=== PATIENT | male | born 1990 | race African-American/Black ===

== ENCOUNTER → 2020-08-06 | Emergency (ER) | payer OTHER ==
[~2020-08-06] VITALS: Ht 193 cm; Wt 121.6 kg
[~2020-08-06] MED LIST: CEFTRIAXONE 1 G VIAL IM ONE; CEFTRIAXONE 1 G VIAL ONE; CT SWABBABLE VALVE TRANS SET 1 EA INFUS.SET MC ONE; DOXY-326 PO; DOXYCYCLINE HYCLATE (100 MG) 100 MG TABLET ONE; DOXYCYCLINE HYCLATE (100 MG) 100 MG TABLET PO ONE; IBUP-1957 PO; IOHEXOL-300 100 ML VIAL IV ONE; IV NS 0.9% 250 ML IV ONE; LIDOCAINE /MPF 1% VIAL 5 ML VIAL ONE; METR500T PO; TRAM50TA2 PO
--- NOTE | 2020-08-06 17:50 | NUR ---
PT BIB SELF C/O RECTAL PAIN X 2 WEEKS, NOTICE "BLOOD CLOTS" IN STOOL TODAY. PT IS AAOX4, NOT IN RESPIRATORY DISTRESS, V/S STABLE, KEPT RESTED AND COMFORTABLE. WILL CONTINUE TO MONITOR.
--- NOTE | 2020-08-06 18:15 | NUR ---
TIAN AGUILAR AT BEDSIDE FOR EVAL.
--- NOTE | 2020-08-06 18:40 | NUR ---
IV LINE ESTABLISHED BLOOD DRAWN AND SENT TO LAB.
[2020-08-06 18:44] LABS: EOSINOPHILS % (AUTO) 1.2 % (0.0-6.0); HEMATOCRIT 45 % (39-51); HEMOGLOBIN 15.5 g/dL (13.5-17.5); LYMPHOCYTES % (AUTO) 24.6 % (20.0-44.0); MEAN CORPUSCULAR HGB CONC 34 g/dl (31.0-36.0); MEAN CORPUSCULAR VOLUME 83 fL (80-96); MONOCYTES % (AUTO) 7.8 % (2.0-12.0); NEUTROPHILS % (AUTO) 65.7 % (43.0-81.0); PLATELET COUNT (AUTO) 309 /CMM (150-450); RED BLOOD CELL COUNT(AUTO) 5.47 MIL/uL (4.5-6.0)
[2020-08-06 18:45] LABS: BASOPHILS # (AUTO) 0.1 /CMM (0.0-0.2); BASOPHILS % (AUTO) 0.7 % (0.0-2.0); MONOCYTES # (AUTO) 0.6 /CMM (0.1-1.30); NEUTROPHILS # (AUTO) 5.3 /CMM (1.8-8.9)
[2020-08-06 19:07] LABS: ALBUMIN 4.2 g/dL (3.4-5.0); BILIRUBIN,DIRECT 0.2 mg/dL (0.0-0.2); BILIRUBIN,TOTAL 0.9 mg/dL (0.2-1.0); CALCIUM, SERUM 8.8 mg/dL (8.5-10.1); CREATININE 1.2 mg/dL (0.6-1.3); POTASSIUM 3.6 mmol/L (3.5-5.1); TOTAL PROTEIN, SERUM 8.2 g/dL (6.4-8.2)
--- NOTE | 2020-08-06 19:42 | NUR ---
returned from ct
--- NOTE | 2020-08-06 20:08 | NUR ---
INFECTIOUS DISEASE MEDICAL CLAIMS ANALYST PAGED PER MD REQUEST (DR. JEAN BAPTISTE)
--- NOTE | 2020-08-06 20:22 | NUR ---
Patient discharged to home in stable condition. Written and verbal after care instructions given. Patient verbalizes understanding of instruction. IV removed. Catheter intact and site benign. Pressure and 4x4 applied to site. No bleeding noted. Pt ambulatory with a steady gait
[2020-08-06 20:33] VITALS: BP 110/69
== END | disposition home or self-care (01) ==
LOC: ER 17:50
DX: K62.89 Other specified diseases of anus and rectum (principal); I10 Essential (primary) hypertension; Z88.8 Allergy status to other drugs, medicaments and biological substances
CPT/HCPCS: 74177; 80048; 80076; 85025; 85730; 96372; 99285; J0696; J3490; J7050; Q9967

== ENCOUNTER 2020-08-30 02:40 | Emergency (ER) | payer OTHER ==
[~2020-08-30 02:40] MED LIST changes: -CEFTRIAXONE 1 G VIAL IM ONE; -CEFTRIAXONE 1 G VIAL ONE; -CT SWABBABLE VALVE TRANS SET 1 EA INFUS.SET MC ONE; -DOXYCYCLINE HYCLATE (100 MG) 100 MG TABLET ONE; -DOXYCYCLINE HYCLATE (100 MG) 100 MG TABLET PO ONE; -IOHEXOL-300 100 ML VIAL IV ONE; -IV NS 0.9% 250 ML IV ONE; -LIDOCAINE /MPF 1% VIAL 5 ML VIAL ONE
== END 2020-08-30 02:50 | disposition left against medical advice (07) ==
LOC: ER 02:45
DX: Z53.21 Procedure and treatment not carried out due to patient leaving prior to being seen by health care provider (principal)

== ENCOUNTER 2020-10-23 20:42 | Emergency (ER) | payer OTHER ==
--- NOTE | 2020-10-23 21:41 | NUR ---
CALLED PT FOR TRIAGE NO ANSWER
--- NOTE | 2020-10-23 22:04 | NUR ---
CALLED FOR TRIAGE NO ANSWER
--- NOTE | 2020-10-23 22:24 | NUR ---
CALLED FOR TRIAGE, NO ANSWER
== END 2020-10-24 00:17 | disposition left against medical advice (07) ==
LOC: ER 20:46
DX: Z53.21 Procedure and treatment not carried out due to patient leaving prior to being seen by health care provider (principal)

== ENCOUNTER 2020-10-25 15:38 | Emergency (ER) | payer OTHER ==
[~2020-10-25] VITALS: Ht 193 cm; Wt 112.0 kg
--- NOTE | 2020-10-25 16:12 | NUR ---
THE PATIENT BIBS FOR C/O "FAINTING SPELLS"/DIZZINESS FOR MONTHS. ALSO C/O FLANK PAIN. RATES PAIN 4/10. IN ROOM AIR AND DENIES SOB. RESPIRATION REGULAR AND UNLABORED. ATTACHED TO THE MONITOR.
[2020-10-25 16:30] LABS: BASOPHILS % (AUTO) 0.3 % (0.0-2.0); EOSINOPHILS % (AUTO) 0.7 % (0.0-6.0); HEMATOCRIT 45 % (39-51); HEMOGLOBIN 15.3 g/dL (13.5-17.5); LYMPHOCYTES % (AUTO) 22.3 % (20.0-44.0); MEAN CORPUSCULAR HGB CONC 34 g/dl (31.0-36.0); MEAN CORPUSCULAR VOLUME 83 fL (80-96); MONOCYTES # (AUTO) 0.8 K/uL (0.1-1.30); NEUTROPHILS # (AUTO) 6.1 K/uL (1.8-8.9); NEUTROPHILS % (AUTO) 67.7 % (43.0-81.0); PLATELET COUNT (AUTO) 324 K/uL (150-450); RED BLOOD CELL COUNT(AUTO) 5.36 MIL/uL (4.5-6.0)
[2020-10-25] MEDS ORDERED: IV NS 0.9% 1,000 ML BAG IV ONE (16:30)
--- NOTE | 2020-10-25 16:35 | NUR ---
THE PATIENT IS TAKEN TO CT
[2020-10-25 16:41] LABS: CALCIUM, SERUM 9.2 mg/dL (8.5-10.1); CARBON DIOXIDE 26 mmol/L (21-32); CHLORIDE 99 mmol/L (98-107); CREATININE 1.3 mg/dL (0.6-1.3); GLUCOSE 85 mg/dL (74-106); POTASSIUM 3.3 mmol/L (3.5-5.1); SODIUM SERUM 138 mmol/L (136-145); UREA NITROGEN, BLOOD 12 mg/dL (7-18)
[2020-10-25 16:46] LABS: ALANINE AMINOTRANSFERASE 17 U/L (12-78); ALBUMIN 4.5 g/dL (3.4-5.0); ALKALINE PHOSPHATASE 84 U/L (46-116); ASPARTATE AMINOTRANSFERASE 15 U/L (15-37); BILIRUBIN,DIRECT 0.2 mg/dL (0.0-0.2); TOTAL PROTEIN, SERUM 8.5 g/dL (6.4-8.2)
--- NOTE | 2020-10-25 17:00 | NUR ---
The patient is back from CT
[2020-10-25 18:09] VITALS: BP 125/73
--- NOTE | 2020-10-25 18:09 | NUR ---
IV removed. Catheter intact and site benign. Pressure and 4x4 applied to site. No bleeding noted.Patient discharged to home in stable condition. Written and verbal after care instructions given. Patient verbalizes understanding of instruction.
== END 2020-10-25 18:10 | disposition home or self-care (01) ==
LOC: ER 15:40
DX: R55 Syncope and collapse (principal); R42 Dizziness and giddiness; R10.9 Unspecified abdominal pain; I10 Essential (primary) hypertension; Z88.8 Allergy status to other drugs, medicaments and biological substances; Z79.899 Other long term (current) drug therapy
CPT/HCPCS: 36415; 70450; 71045; 76770; 80048; 80076; 84484; 85025; 85730; 93005; 96360; 99285; J7030